=== PATIENT | male | born 1950 | race Caucasian/White ===

== ENCOUNTER 2021-09-26 10:13 | Outpatient (CLI) | payer MEDICARE, BC ==
[2021-09-27 12:10] LABS: SARS-CoV-2 PCR by NAA Not Detected (NotDetected)
== END 2021-09-26 10:14 | disposition home or self-care (01) ==
LOC: LABBT 10:13
PROVIDERS: ATTEND Internal Medicine Gastroenterology
DX: Z01.812 Encounter for preprocedural laboratory examination (principal); Z86.010 Personal history of colon polyps; Z20.822 Contact with and (suspected) exposure to COVID-19
CPT/HCPCS: U0003; U0005

== ENCOUNTER 2021-10-01 07:04 | Day surgery (SDC) | payer MEDICARE, BC ==
[2021-09-24 13:31] VITALS: BMI 24.3
[2021-10-01] MEDS ORDERED: Scopolamine 1.5 mg/72 hour Patch ONE (07:59)
[2021-10-01] MEDS ORDERED: Ondansetron PF 4 MG/2 ML Vial ONE (08:01)
[2021-10-01] MEDS ORDERED: Lidocaine 1% PF 5 ML VIAL ONE (08:39)
[2021-10-01] MEDS ORDERED: PROPOFOL 200 MG/20 ML VIAL ONE (08:39)
== END 2021-10-01 09:58 | disposition home or self-care (01) ==
LOC: SDC 07:04
PROVIDERS: ATTEND Internal Medicine Gastroenterology
PROC: 0DJD8ZZ Inspection of Lower Intestinal Tract, Via Natural or Artificial Opening Endoscopic (ICD-10-PCS; principal; 2021-10-01)
DX: Z12.11 Encounter for screening for malignant neoplasm of colon (principal); K64.8 Other hemorrhoids; I10 Essential (primary) hypertension; E78.5 Hyperlipidemia, unspecified; I25.2 Old myocardial infarction; F10.21 Alcohol dependence, in remission; E78.00 Pure hypercholesterolemia, unspecified; Z86.010 Personal history of colon polyps; Z87.891 Personal history of nicotine dependence; Z79.82 Long term (current) use of aspirin; Z79.899 Other long term (current) drug therapy; Z95.810 Presence of automatic (implantable) cardiac defibrillator; Z90.49 Acquired absence of other specified parts of digestive tract
CPT/HCPCS: J2405; J2704

== ENCOUNTER 2023-10-19 12:55 | Outpatient (CLI) | payer MEDICARE, BC | END 2023-10-19 12:56 | disposition home or self-care (01) | LOC: LABBT 12:55 | PROVIDERS: ATTEND Thoracic Surgery (Cardiothoracic Vascular Surgery) | DX: Z01.812 Encounter for preprocedural laboratory examination (principal); I25.10 Atherosclerotic heart disease of native coronary artery without angina pectoris | CPT/HCPCS: 80048; 85027; 86850; 86900; 86901 ==

== ENCOUNTER 2023-10-19 13:30 | Inpatient (IN) | payer MEDICARE, BC ==
[2023-10-19 13:52] LABS: Hematocrit 38.2 % (38.8-50.0); Hemoglobin 13.6 g/dL (13.5-17.5); Mean Corpuscular HGB CONC 35.6 g/dL (32.0-36.0); Mean Corpuscular Hemoglobin 31.6 pg (27.0-33.0); Mean Corpuscular Volume 88.6 fl (81.2-95.1); Mean Platelet Volume 11.4 fl (7.4-10.4); Platelet Count 187 10x3/uL (150-450); RBC Distribution Width 11.9 % (11.5-14.5); Red Blood Cell (RBC) Count 4.31 10x6/uL (4.32-5.72)
[2023-10-19 14:31] LABS: Anion Gap 13 mmol/L (10-20); BUN (Urea Nitrogen) 22 mg/dL (8.4-25.7); Calc. Creatinine Clearance 0 mL/min (70-130); Carbon Dioxide 24 mmol/L (23-31); Chloride 107 mmol/L (98-107); Estimated GFR 83; Glucose 86 mg/dL (83-110); Potassium 4.8 mmol/L (3.5-5.1); Sodium 139 mmol/L (136-145)
[2023-10-21] MEDS ORDERED: Heparin 10,000 UNITS/1 ML VIAL 30,000 UNITS in Sodium Chloride 0.9% 1,000 ML FS SCH (07:00)
[2023-10-21] MEDS ORDERED: Heparin 30,000 units/30 ml VIAL ONE (07:38)
[2023-10-21] MEDS ORDERED: Potassium Chloride 60 mEq (30 mL) VIAL ONE (07:38)
[2023-10-21] MEDS ORDERED: Protamine Sulfate 250 MG/25 ML VIAL ONE (07:38)
[2023-10-21] MEDS ORDERED: Rocuronium Bromide 10 MG/ML (10ML VIAL) ONE (07:38)
[2023-10-21] MEDS ORDERED: Calcium Chloride 1 GM/10 ML Abboject SYRINGE ONE (07:38)
[2023-10-21] MEDS ORDERED: Aminocaproic Acid 5 GM/20 ML VIAL ONE (07:38)
[2023-10-21] MEDS ORDERED: Sodium Bicarb 50 mEq/50 ML VIAL ONE (07:38)
[2023-10-21] MEDS ORDERED: Thrombin 5000 UNITS/5 ML VIAL ONE (07:38)
[2023-10-21] MEDS ORDERED: Vancomycin 1 GM VIAL ONE (07:38)
[2023-10-21] MEDS ORDERED: Heparin 5,000 UNITS/ML VIAL ONE (07:38)
[2023-10-21] MEDS ORDERED: Lidocaine 1% PF 5 ML VIAL ONE (07:38)
[2023-10-21] MEDS ORDERED: EPINEPHrine 1 MG/ML AMP ONE (07:38)
[2023-10-21] MEDS ORDERED: Papaverine 60 MG/2 ML VIAL ONE (07:38)
[2023-10-21] MEDS ORDERED: Magnesium 5 GM/10 ML VIAL ONE (07:38)
[2023-10-21] MEDS ORDERED: PROPOFOL 200 MG/20 ML VIAL ONE (07:38)
[2023-10-21] MEDS ORDERED: ePHEDrine Sulfate 50 MG/10 ML VIAL ONE (07:38)
[2023-10-21] MEDS ORDERED: Mannitol 12.5 GM/50 ML ONE (07:38)
[2023-10-21] MEDS ORDERED: Lidocaine 2% PF 100 mg/5 ml Syringe ONE (07:38)
[2023-10-21] MEDS ORDERED: Cardioplegic Soln 1,000 ML BAG ONE (07:38)
[2023-10-21] MEDS ORDERED: PHENYLEPHRINE-NS 100 MCG/ML 10 ML SYRINGE ONE (10:16)
[2023-10-21] MEDS ORDERED: DOPamine 400 MG/D5W 250 ML 250 ML IVPB PRN (12:10)
[2023-10-21] MEDS ORDERED: hydrALAZINE 20 MG/ML VIAL SLOW IVP PRN (12:10)
[2023-10-21] MEDS ORDERED: Albumin 5% 12.5 GM (250 mL) BOT IVPB PRN ×2 (12:10)
[2023-10-21] MEDS ORDERED: Ondansetron PF 4 MG/2 ML Vial IVP PRN (12:10)
[2023-10-21] MEDS ORDERED: Nitroglycerin 50 MG/250 ML BOT 250 ML IVPB PRN (12:10)
[2023-10-21] MEDS ORDERED: HYDROcodone/Acetaminophen 5/325 mg Tablet PO PRN (12:10)
[2023-10-21] MEDS ORDERED: Ipratropium/Albuterol 3 ML NEB NEB PRN (12:10)
[2023-10-21] MEDS ORDERED: Promethazine HCl 25 MG/ML VIAL IM PRN (12:10)
[2023-10-21] MEDS ORDERED: niCARdipine 25 MG in Sodium Chloride 0.9% 250 ML 250 ML IVPB PRN (12:10)
[2023-10-21] MEDS ORDERED: fentaNYL 50 mcg/mL 1 mL Vial SLOW IVP PRN (12:10)
[2023-10-21] MEDS ORDERED: Mag-Al 1200 mg/1200 mg/30 ML UDCUP PO PRN (12:10)
[2023-10-21] MEDS ORDERED: Acetaminophen 325 MG TAB PO PRN (12:10)
[2023-10-21] MEDS ORDERED: Bisacodyl 10 MG SUPP PR PRN (12:10)
[2023-10-21] MEDS ORDERED: Guaifenesin DM 100-10/5 ML UDCUP PO PRN (12:10)
[2023-10-21] MEDS ORDERED: Hetastarch 6% 500 ML 500 ML IVPB PRN (12:10)
[2023-10-21 12:29] LABS: Actual Bicarbonate (HCO3a) 20.9 mEq/L (22-28); Base Excess (BEa) -4.1 mEq/L (-2.0 to +3.0); CO2 Tension 37.6 mmHg (35.0-45.0); Calcium, Ionized (arterial) 1.07 mmol/L (1.12-1.30); Carboxyhemoglobin (COHb) 0.3 gm% (0.0-3.0); Hematocrit-ABG 30 % (42.0-52.0); Hemoglobin (Hb) 10.2 g/dL (14.0-18.0); O2 Tension (PaO2), arterial 168.1 mmHg (> 70.0); Potassium - ABG Lab 4.27 mmol/L (3.70-5.30); pH, Arterial 7.362 (7.35-7.45)
[2023-10-21 12:30] LABS: Puncture Site Arterial Line
[2023-10-21] MEDS ORDERED: Dextrose 5% in Water 1,000 ML IV PRN (12:30)
[2023-10-21] MEDS ORDERED: Dextrose 50% Abboject 50 ML SYRINGE SLOW IVP PRN (12:30)
[2023-10-21] MEDS ORDERED: Glucagon 1 MG/ML KIT SC PRN (12:30)
[2023-10-21] MEDS ORDERED: Insulin Regular 300 UNITS/3 ML VIAL SC PRN (12:30)
[2023-10-21 12:34] LABS: #Basophils 0.1 thou/uL (0.0-0.2); #Eosinphils 0.3 thou/uL (0.0-0.7); #Monocytes 0.9 thou/uL (0.11-0.59); %Basophils 0.3 % (0.0-1.0); %Eosinophils 1.4 % (0.0-10.0); %Lymphocytes 6.2 % (21.0-51.0); %Monocytes 4.7 % (0.0-10.0); %Neutrophils 86.7 % (42.0-75.0); Hematocrit 26.8 % (42.0-52.0); Hemoglobin 9.3 g/dL (14.0-18.0); Mean Corpuscular HGB CONC 34.7 g/dL (32.0-36.0); Mean Corpuscular Hemoglobin 31.4 pg (27.0-31.0); Mean Corpuscular Volume 90.5 fl (78.0-98.0); Mean Platelet Volume 11.4 fL (7.4-10.4); Platelet Count 116 10x3/uL (130-400); RBC Distribution Width 11.9 % (11.5-14.5); Red Blood Cell (RBC) Count 2.96 mill/uL (4.70-6.10); White Blood Cell (WBC) Count 18.4 10x3/uL (4.8-10.8)
[2023-10-21 12:58] LABS: Anion Gap 9 mmol/L (10-20); BUN (Urea Nitrogen) 13 mg/dL (8.4-25.7); Calc. Creatinine Clearance 103 mL/min (70-130); Calcium 7.2 mg/dL (7.8-10.44); Carbon Dioxide 20 mmol/L (23-31); Chloride 115 mmol/L (98-107); Estimated GFR 96; Glucose 169 mg/dL (83-110); Potassium 4.3 mmol/L (3.5-5.1); Sodium 140 mmol/L (136-145)
[2023-10-21] MEDS: HUMULIN R 100 UNITS in Sodium Chloride 0.9% 100 ML IVPB SCH (13:02)
[2023-10-21] MEDS: Lactated Ringer's 1,000 ML IV SCH (13:02)
[2023-10-21] MEDS: Post-Op Insulin Drip Protocol IVPB ONE (13:03)
[2023-10-21] MEDS: NOREPINEPHRINE 8 MG/250 ML-D5W 250 ML ONE (13:03)
[2023-10-21] MEDS: NOREPINEPHRINE 8 MG/250 ML-D5W 250 ML IVPB PRN (13:03)
[2023-10-21] MEDS: fentaNYL 50 mcg/mL 1 mL Vial SLOW IVP PRN (13:04)
[2023-10-21] MEDS: fentaNYL 50 mcg/mL 1 mL Vial ONE (13:04)
[2023-10-21] MEDS: Morphine 2 MG/ML VIAL SLOW IVP PRN (13:05)
[2023-10-21 13:38] LABS: INR-International Normal Ratio 1.6; PTT 34.2 sec (22.9-36.1); Prothrombin Time 18.9 sec (12.0-14.7)
[2023-10-21] MEDS: CEFAZOLIN 2 GM in Sodium Chloride 0.9% 100 ML IVPB SCH (14:24)
[2023-10-21 14:25] VITALS: BMI 28.4
[2023-10-21] MEDS: FLU VACC QS2023(65UP)/MF59C/PF 60 MCG/0.5 ML SYRINGE IM ONE (15:21)
[2023-10-21 15:42] LABS: Actual Bicarbonate (HCO3a) 22.6 mEq/L (22-28); CO2 Tension 33.8 mmHg (35.0-45.0); Calcium, Ionized (arterial) 1.09 mmol/L (1.12-1.30); Carboxyhemoglobin (COHb) 0.1 gm% (0.0-3.0); Hematocrit-ABG 31 % (42.0-52.0); Hemoglobin (Hb) 10.5 g/dL (14.0-18.0); O2 Tension (PaO2), arterial 168.7 mmHg (> 70.0); pH, Arterial 7.443 (7.35-7.45)
[2023-10-21 15:44] LABS: Puncture Site Arterial Line
[2023-10-21] MEDS: Ketorolac Tromethamine 30 MG (1 mL) VIAL IVP SCH (17:00)
[2023-10-21 17:15] LABS: Hematocrit 28.5 % (42.0-52.0); Hemoglobin 9.8 g/dL (14.0-18.0)
[2023-10-21 17:33] LABS: INR-International Normal Ratio 1.3; PTT 32.7 sec (22.9-36.1); Prothrombin Time 16.6 sec (12.0-14.7)
[2023-10-21 17:38] LABS: Magnesium 2.1 mg/dL (1.6-2.6); Potassium 4.1 mmol/L (3.5-5.1)
[2023-10-21] MEDS: Amiodarone 450 MG in Dextrose 5% in Water 250 ML IVPB SCH (18:15)
[2023-10-21] MEDS: Magnesium Sulfate 3 GM in Sodium Chloride 0.9% 100 ML IVPB SCH (18:21)
[2023-10-21] MEDS: Famotidine/PF 20 mg/2ml Vial SLOW IVP SCH (20:39)
[2023-10-21] MEDS: Atorvastatin Calcium 20 MG TAB PO SCH (20:39)
[2023-10-21] MEDS: HYDROcodone/Acetaminophen 5/325 mg Tablet PO PRN (23:14)
[2023-10-22 04:11] LABS: #Monocytes 1.3 thou/uL (0.11-0.59); #Neutrophils 11.5 thou/uL (1.40-6.50); %Basophils 0.3 % (0.0-1.0); %Eosinophils 0.1 % (0.0-10.0); %Lymphocytes 9.6 % (21.0-51.0); %Monocytes 9.2 % (0.0-10.0); %Neutrophils 80.4 % (42.0-75.0); Hematocrit 24.9 % (42.0-52.0); Hemoglobin 8.5 g/dL (14.0-18.0); Mean Corpuscular HGB CONC 34.1 g/dL (32.0-36.0); Mean Corpuscular Hemoglobin 31.6 pg (27.0-31.0); Mean Corpuscular Volume 92.6 fl (78.0-98.0); Mean Platelet Volume 11.7 fL (7.4-10.4); Platelet Count 145 10x3/uL (130-400); RBC Distribution Width 12.4 % (11.5-14.5); Red Blood Cell (RBC) Count 2.69 mill/uL (4.70-6.10); White Blood Cell (WBC) Count 14.3 10x3/uL (4.8-10.8)
[2023-10-22 04:35] LABS: Anion Gap 9 mmol/L (10-20); BUN (Urea Nitrogen) 14 mg/dL (8.4-25.7); Calc. Creatinine Clearance 87 mL/min (70-130); Calcium 7.9 mg/dL (7.8-10.44); Carbon Dioxide 22 mmol/L (23-31); Chloride 111 mmol/L (98-107); Estimated GFR 76; Glucose 136 mg/dL (83-110); Potassium 3.8 mmol/L (3.5-5.1); Sodium 138 mmol/L (136-145)
[2023-10-22] MEDS: Potassium Chloride 20 MEQ (100 mL) BAG IVPB PRN (06:13)
[2023-10-22] MEDS: Tamsulosin HCl 0.4 MG CAP PO SCH (08:27)
[2023-10-22] MEDS: Aspirin 325 MG TAB PO SCH (08:27)
[2023-10-22] MEDS: Amiodarone 200 MG TAB PO SCH (08:27)
[2023-10-22] MEDS: Carvedilol 6.25 MG TAB PO SCH (08:28)
[2023-10-22] MEDS: Magnesium Oxide 400 MG TAB PO SCH (08:28)
[2023-10-22] MEDS: Polyethylene Glycol 3350 17 GM Packet PO SCH (08:40)
[2023-10-22] MEDS ORDERED: Insulin Glargine 30 UNITS/0.3 ML VIAL SC PRN (12:25)
[2023-10-23 04:30] LABS: #Eosinphils 0.2 thou/uL (0.0-0.7); #Monocytes 1.2 thou/uL (0.11-0.59); #Neutrophils 9.9 thou/uL (1.40-6.50); %Basophils 0.3 % (0.0-1.0); %Eosinophils 1.1 % (0.0-10.0); %Lymphocytes 13.8 % (21.0-51.0); %Monocytes 9.4 % (0.0-10.0); %Neutrophils 74.9 % (42.0-75.0); Hematocrit 22.2 % (42.0-52.0); Hemoglobin 7.6 g/dL (14.0-18.0); Mean Corpuscular HGB CONC 34.2 g/dL (32.0-36.0); Mean Corpuscular Hemoglobin 32.1 pg (27.0-31.0); Mean Corpuscular Volume 93.7 fl (78.0-98.0); Mean Platelet Volume 11.8 fL (7.4-10.4); RBC Distribution Width 12.6 % (11.5-14.5); Red Blood Cell (RBC) Count 2.37 mill/uL (4.70-6.10); White Blood Cell (WBC) Count 13.3 10x3/uL (4.8-10.8)
[2023-10-23 05:07] LABS: Anisocytosis SLIGHT = 6-15 cells HPF (0-5); CellaVision Operator ID LAB.JMM; Hypochromia SLIGHT = 6-15 cells HPF (0-5); Platelet Adequacy Comment Platelets Decreased; Platelet Count 120 10x3/uL (130-400); Polychromasia SLIGHT = 2-3 cells HPF (0-2)
[2023-10-23 05:20] LABS: Anion Gap 8 mmol/L (10-20); BUN (Urea Nitrogen) 24 mg/dL (8.4-25.7); Calc. Creatinine Clearance 75 mL/min (70-130); Calcium 8.2 mg/dL (7.8-10.44); Carbon Dioxide 24 mmol/L (23-31); Chloride 107 mmol/L (98-107); Estimated GFR 79; Glucose 101 mg/dL (83-110); Potassium 3.9 mmol/L (3.5-5.1); Sodium 135 mmol/L (136-145)
[2023-10-23] MEDS: Bisacodyl 5 MG TAB PO PRN (08:09)
[2023-10-23] MEDS ORDERED: Artificial Tear Sol 15 ML BOT EA EYE PRN (09:53)
[2023-10-23] MEDS ORDERED: Nitroglycerin 0.4 MG TAB (25 Tab Bottle) SL PRN (09:53)
[2023-10-23] MEDS ORDERED: Mineral Oil ENEMA PR PRN (09:53)
[2023-10-23] MEDS: Furosemide 40 MG TAB PO SCH (12:26)
[2023-10-24 04:43] LABS: #Eosinphils 0.4 thou/uL (0.0-0.7); #Monocytes 1.1 thou/uL (0.11-0.59); %Basophils 0.3 % (0.0-1.0); %Eosinophils 3.6 % (0.0-10.0); %Lymphocytes 13.6 % (21.0-51.0); Hematocrit 24.7 % (42.0-52.0); Hemoglobin 8.4 g/dL (14.0-18.0); Mean Corpuscular Hemoglobin 31.5 pg (27.0-31.0); Mean Corpuscular Volume 92.5 fl (78.0-98.0); Platelet Count 127 10x3/uL (130-400); RBC Distribution Width 12.8 % (11.5-14.5); Red Blood Cell (RBC) Count 2.67 mill/uL (4.70-6.10); White Blood Cell (WBC) Count 12.4 10x3/uL (4.8-10.8)
[2023-10-24] MEDS: Potassium Chloride 10 MEQ TAB PO SCH (07:20)
[2023-10-24] MEDS: Furosemide 40 MG TAB PO SCH (08:03)
[2023-10-24] MEDS: Carvedilol 6.25 MG TAB PO SCH (16:42)
[2023-10-25 07:27] VITALS: BP 144/78
[2023-10-25] MEDS: Sacubitril 24MG/Valsartan 26 MG TAB PO SCH (08:37)
[2023-10-25 08:59] VITALS: TEMP 98.5
[2023-10-27 08:13] LABS: Actual Bicarbonate (HCO3a) 19.6 mEq/L (22-28); Analyzer IN Cardio OR; Base Excess (BEa) -4.2 mEq/L (-2.0 to +3.0); CO2 Tension 32.5 mmHg (35.0-45.0); Calcium, Ionized (arterial) 1.16 mmol/L (1.12-1.30); Carboxyhemoglobin (COHb) 0.3 gm% (0.0-3.0); Hematocrit-ABG 40 % (42.0-52.0); Hemoglobin (Hb) 13.5 g/dL (14.0-18.0); Potassium - ABG Lab 3.71 mmol/L (3.70-5.30); pH, Arterial 7.399 (7.35-7.45)
[2023-10-27 08:14] LABS: Actual Bicarbonate (HCO3a) 19.3 mEq/L (22-28); Analyzer IN Cardio OR; Base Excess (BEa) -5.9 mEq/L (-2.0 to +3.0); CO2 Tension 36.6 mmHg (35.0-45.0); Calcium, Ionized (arterial) 1.06 mmol/L (1.12-1.30); Carboxyhemoglobin (COHb) 0.3 gm% (0.0-3.0); Hematocrit-ABG 36 % (42.0-52.0); Hemoglobin (Hb) 12.1 g/dL (14.0-18.0); O2 Tension (PaO2), arterial 432.8 mmHg (> 70.0); pH, Arterial 7.339 (7.35-7.45)
[2023-10-27 08:14] LABS: Actual Bicarbonate (HCO3a) 21.4 mEq/L (22-28); Analyzer IN Cardio OR; Base Excess (BEa) -3.3 mEq/L (-2.0 to +3.0); CO2 Tension 37.3 mmHg (35.0-45.0); Calcium, Ionized (arterial) 1.06 mmol/L (1.12-1.30); Carboxyhemoglobin (COHb) 0.3 gm% (0.0-3.0); Hematocrit-ABG 29 % (42.0-52.0); Hemoglobin (Hb) 9.9 g/dL (14.0-18.0); O2 Tension (PaO2), arterial 341.5 mmHg (> 70.0); Potassium - ABG Lab 5.14 mmol/L (3.70-5.30); pH, Arterial 7.377 (7.35-7.45)
[2023-10-27 08:15] LABS: Actual Bicarbonate (HCO3a) 21.6 mEq/L (22-28); Analyzer IN Cardio OR; Base Excess (BEa) -3.1 mEq/L (-2.0 to +3.0); CO2 Tension 37.1 mmHg (35.0-45.0); Calcium, Ionized (arterial) 1.04 mmol/L (1.12-1.30); Carboxyhemoglobin (COHb) 0.3 gm% (0.0-3.0); Hematocrit-ABG 26 % (42.0-52.0); Hemoglobin (Hb) 8.9 g/dL (14.0-18.0); Potassium - ABG Lab 4.71 mmol/L (3.70-5.30); pH, Arterial 7.383 (7.35-7.45)
[2023-10-27 08:15] LABS: Analyzer IN Cardio OR; Base Excess (BEa) -4.1 mEq/L (-2.0 to +3.0); CO2 Tension 38.2 mmHg (35.0-45.0); Calcium, Ionized (arterial) 1.04 mmol/L (1.12-1.30); Carboxyhemoglobin (COHb) 0.3 gm% (0.0-3.0); Hematocrit-ABG 29 % (42.0-52.0); Hemoglobin (Hb) 9.9 g/dL (14.0-18.0); O2 Tension (PaO2), arterial 435.3 mmHg (> 70.0); Potassium - ABG Lab 4.24 mmol/L (3.70-5.30); pH, Arterial 7.357 (7.35-7.45)
[2023-10-27 08:17] LABS: Analyzer IN Cardio OR; Base Excess (BEa) -1.2 mEq/L (-2.0 to +3.0); CO2 Tension 42.3 mmHg (35.0-45.0); Carboxyhemoglobin (COHb) 0.3 gm% (0.0-3.0); Hematocrit-ABG 29 % (42.0-52.0); Hemoglobin (Hb) 9.9 g/dL (14.0-18.0); Puncture Site Arterial Line; pH, Arterial 7.372 (7.35-7.45)
[2023-10-27 08:18] LABS: Puncture Site Arterial Line
[2023-10-27 08:19] LABS: Puncture Site Arterial Line
[2023-10-27 08:19] LABS: Puncture Site Arterial Line
[2023-10-27 08:20] LABS: Puncture Site Arterial Line
[2023-10-27 08:20] LABS: Puncture Site Arterial Line
== END 2023-10-25 09:55 | disposition home or self-care (01) | DRG 236 ==
LOC: SURG A 10-21 06:11 → CCU 10-21 12:10
PROVIDERS: ADMIT Thoracic Surgery (Cardiothoracic Vascular Surgery); ATTEND Thoracic Surgery (Cardiothoracic Vascular Surgery)
PROC: 02100Z9 Bypass Coronary Artery, One Artery from Left Internal Mammary, Open Approach (ICD-10-PCS; principal; 2023-10-21)
PROC: 021109W Bypass Coronary Artery, Two Arteries from Aorta with Autologous Venous Tissue, Open Approach (ICD-10-PCS; 2023-10-21)
PROC: 06BQ4ZZ Excision of Left Saphenous Vein, Percutaneous Endoscopic Approach (ICD-10-PCS; 2023-10-21)
PROC: 5A1221Z Performance of Cardiac Output, Continuous (ICD-10-PCS; 2023-10-21)
PROC: 6A550Z2 Pheresis of Platelets, Single (ICD-10-PCS; 2023-10-21)
PROC: 30233R1 Transfusion of Nonautologous Platelets into Peripheral Vein, Percutaneous Approach (ICD-10-PCS; 2023-10-21)
PROC: 4A133R1 Monitoring of Arterial Saturation, Peripheral, Percutaneous Approach (ICD-10-PCS; 2023-10-21)
PROC: 3E033XZ Introduction of Vasopressor into Peripheral Vein, Percutaneous Approach (ICD-10-PCS; 2023-10-21)
PROC: 30233N1 Transfusion of Nonautologous Red Blood Cells into Peripheral Vein, Percutaneous Approach (ICD-10-PCS; 2023-10-23)
DX: I25.811 Atherosclerosis of native coronary artery of transplanted heart without angina pectoris (principal); I47.20 Ventricular tachycardia, unspecified; I50.22 Chronic systolic (congestive) heart failure; E78.00 Pure hypercholesterolemia, unspecified; Z98.890 Other specified postprocedural states; Z82.49 Family history of ischemic heart disease and other diseases of the circulatory system; Z87.891 Personal history of nicotine dependence; Z79.899 Other long term (current) drug therapy; I11.0 Hypertensive heart disease with heart failure; Z79.82 Long term (current) use of aspirin
CPT/HCPCS: 36416; 36430; 71045; 80048; 82805; 82947; 83735; 85025; 85027; 85610; 85730; 86850; 86900; 86901; 87086; 93005; 93010; 93798; 94002; A4311; A4648; C1751; J0171; J0282; J0690; J1642; J1644; J1815; J1885; J2001; J2150; J2250; J2272; J2440; J2704; J2720; J3010; J3370; J3475; J3480; J3490; J7050; J7070; J7120; P9016; P9035; P9045; S0017; S0028